=== PATIENT | female | born 1990 | race African-American/Black ===

== ENCOUNTER 2017-03-04 13:09 | Emergency (ER) | payer SELFPAY ==
[2017-03-04] MEDS ORDERED: IPRATROPIUM/ALBUTEROL 0.5-2.5 MG/3 ML AMPUL NEB ONE (14:46)
[2017-03-04] MEDS ORDERED: BUTALB/ACETAMINOPHEN/CAFFEINE 1 TAB EACH PO ONE (14:55)
[2017-03-04] MEDS ORDERED: DEXAMETHASONE 4 MG TABLET PO ONE (14:55)
--- NOTE | 2017-03-04 14:57 | ER Document Report ---
HPI - HPI Patient complains to provider of: sore throat, cough Onset/Duration: Persistent Quality of pain: Achy Pain Level: 3 Context: Patient presents complaining of sore throat for the past 2 weeks with cough for the past 4 days. Patient states that when she coughs it causes her head to hurt. Patient states she has had headache off and on for the past 4 days. Patient states she was coughing so hard today that she did vomit after coughing. Patient denies any fever. Associated Symptoms: Nonproductive cough, Headache, Vomiting - After cough, Sore throat. denies: Fever Exacerbated by: Coughing Relieved by: Remaining still Similar symptoms previously: Yes Recently seen / treated by doctor: No - ROS ROS below otherwise negative: Yes Systems Reviewed and Negative: Yes All other systems reviewed and negative - CONSTITUTIONAL Constitutional: DENIES: Fever, Chills - EENT EENT: REPORTS: Sore Throat. DENIES: Ear Pain, Eye problems - NEURO Neurology: REPORTS: Headache - CARDIOVASCULAR Cardiovascular: DENIES: Chest pain - RESPIRATORY Respiratory: REPORTS: Coughing. DENIES: Trouble Breathing - GASTROINTESTINAL Gastrointestinal: REPORTS: Patient vomiting. DENIES: Abdominal Pain, Diarrhea - REPRODUCTIVE LMP: [id number] Reproductive: DENIES: : - MUSCULOSKELETAL Musculoskeletal: DENIES: Back Pain - DERM Skin Color: Normal Skin Problems: None Past Medical History - General Information source: Patient - Social History Smoking Status: Current Every Day Smoker Chew tobacco use (# tins/day): No Smoking Education Provided: Yes Frequency of alcohol use: Occasional Drug Abuse: None Lives with: Family Family History: Reviewed & Not Pertinent Patient has suicidal ideation: No Patient has homicidal ideation: No - Medical History Medical History: Negative Renal/ Medical History: Denies: Hx Peritoneal Dialysis Past Surgical History: Reports: Hx Section - Immunizations Hx Diphtheria, Pertussis, Tetanus Vaccination: Yes Vertical Provider Document - CONSTITUTIONAL Agree With Documented VS: Yes Exam Limitations: No Limitations General Appearance: WD/WN, No Apparent Distress - INFECTION CONTROL TRAVEL OUTSIDE OF THE [place] IN LAST 30 DAYS: No - HEENT HEENT: Atraumatic, Normocephalic, Pharyngeal Tenderness, Pharyngeal Erythema. negative: Pharyngeal Exudate - NECK Neck: Normal Inspection, Supple. negative: Lymphadenopathy-Left, Lymphadenopathy-Right Notes: No meningismus - RESPIRATORY Respiratory: No Respiratory Distress, Chest Non-Tender, Wheezing - Only with coughing O2 Sat by Pulse Oximetry: 100 - CARDIOVASCULAR Cardiovascular: Regular Rate, Regular Rhythm, No Murmur - BACK Back: Normal Inspection - MUSCULOSKELETAL/EXTREMETIES Musculoskeletal/Extremeties: KAMLESH CONTRERAS - NEURO Level of Consciousness: Awake, Alert, Appropriate Motor/Sensory: No Motor Deficit Notes: No focal neurologic deficit, cranial nerves II through XII intact - DERM Integumentary: Warm, Dry, No Rash Course - Vital Signs Vital signs: Temp Pulse Resp BP Pulse Ox 98.2 F 74 18 136/80 H 100 03/04/17 13:19 03/04/17 13:19 03/04/17 13:19 03/04/17 13:19 03/04/17 13:19 - Diagnostic Test Radiology reviewed: Reports reviewed Discharge - Discharge Clinical Impression: Sore throat, Bronchospasm Upper respiratory infection Qualifiers: URI type: unspecified URI Qualified Code(s): J06.9 - Acute upper respiratory infection, unspecified Condition: Stable Disposition: HOME, SELF-CARE Instructions: Acetaminophen, Sore Throat ([facility]), Upper Respiratory Illness ([facility]) Additional Instructions: Return immediately for any new or worsening symptoms Followup with your primary care provider, call tomorrow to make a followup appointment Stop smoking Prescriptions: Albuterol Sulfate [Ventolin Hfa] 2 puff IH Q4HP PRN #17 gm PRN Reason: Benzonatate [Tessalon Perle 100 mg Capsule] 100 mg PO Q8HP PRN #20 cap PRN Reason: Naproxen [Naprosyn 250 Nmg Tablet] 1 tab PO BID #14 tablet Forms: Smoking Cessation Education, Return to Work Referrals: [facility] [Provider Group] - Follow up tomorrow
--- NOTE | 2017-03-04 15:33 | RADIOLOGY REPORT (SQ) ---
EXAM DESCRIPTION: CHEST PA/LAT COMPLETED DATE/TIME: 03/04/2017 3:22 pm REASON FOR STUDY: cough COMPARISON: None. EXAM PARAMETERS: NUMBER OF VIEWS: two views TECHNIQUE: Digital Frontal and Lateral radiographic views of the chest acquired. RADIATION DOSE: NA LIMITATIONS: none FINDINGS: LUNGS AND PLEURA: No opacities, masses or pneumothorax. No pleural effusion. MEDIASTINUM AND HILAR STRUCTURES: No masses or contour abnormalities. HEART AND VASCULAR STRUCTURES: Heart normal size. No evidence for failure. BONES: No acute findings. HARDWARE: None in the chest. OTHER: No other significant finding. IMPRESSION: NO SIGNIFICANT RADIOGRAPHIC FINDING IN THE CHEST. TECHNICAL DOCUMENTATION: JOB ID: [id number] [employer]- All Rights Reserved
[2017-03-04 16:41] VITALS: BP 134/82
== END 2017-03-04 16:41 | disposition home or self-care (01) ==
LOC: ER 13:09
DX: J02.9 Acute pharyngitis, unspecified (principal); J98.01 Acute bronchospasm; R51 Headache; R05 Cough; R11.10 Vomiting, unspecified; F17.200 Nicotine dependence, unspecified, uncomplicated; Z71.6 Tobacco abuse counseling
CPT/HCPCS: 94640; 99283; 87070; 87880; 87077; 71020; J3490; J7620

== ENCOUNTER 2017-04-01 15:13 | Emergency (ER) | payer SELFPAY ==
[2017-04-01] MEDS ORDERED: HYDROCODONE/ACETAMINOPHEN 5-325 MG TABLET PO ONE (16:31)
--- NOTE | 2017-04-01 16:52 | RADIOLOGY REPORT (SQ) ---
EXAM DESCRIPTION: CHEST PA/LAT COMPLETED DATE/TIME: 04/01/2017 4:43 pm REASON FOR STUDY: cp COMPARISON: 03/04/2017 EXAM PARAMETERS: NUMBER OF VIEWS: two views TECHNIQUE: Digital Frontal and Lateral radiographic views of the chest acquired. RADIATION DOSE: NA LIMITATIONS: none FINDINGS: LUNGS AND PLEURA: No opacities, masses or pneumothorax. No pleural effusion. MEDIASTINUM AND HILAR STRUCTURES: No masses or contour abnormalities. HEART AND VASCULAR STRUCTURES: Heart normal size. No evidence for failure. BONES: No acute findings. HARDWARE: None in the chest. OTHER: No other significant finding. IMPRESSION: NO SIGNIFICANT RADIOGRAPHIC FINDING IN THE CHEST. TECHNICAL DOCUMENTATION: JOB ID: [id number] [email or web address] ([employer])- All Rights Reserved
[2017-04-01 17:06] LABS: ABSOLUTE BASOPHILS # (AUTO) 0.1 10^3/uL (0.0-0.2); ABSOLUTE EOSINOPHILS # (AUTO) 0.1 10^3/uL (0.0-0.6); ABSOLUTE LYMPHOCYTES (AUTO) 1.9 10^3/uL (0.5-4.7); ABSOLUTE MONOCYTES (AUTO) 0.4 10^3/uL (0.1-1.4); ABSOLUTE NEUT (AUTO) 2.7 10^3/uL (1.7-8.2); EOSINOPHILS % (AUTO) 1.9 % (0-6); HEMATOCRIT 35.1 % (36.0-47.0); HEMOGLOBIN 11.6 g/dL (12.0-15.5); LYMPHOCYTES % (AUTO) 37.2 % (13-45); MEAN CORPUSCULAR HGB CONC 32.9 g/dL (32.0-36.0); MEAN CORPUSCULAR VOLUME 82 fl (80-97); PLATELET COUNT 167 10^3/uL (150-450); RED BLOOD COUNT 4.28 10^6/uL (3.72-5.28); RED CELL DISTRIBUTION WIDTH 18.6 % (11.5-14.0); SEGMENTED NEUTROPHILS % (AUTO) 52.9 % (42-78); TOTAL CELLS COUNTED % (AUTO) 100 %
[2017-04-01 17:22] LABS: ALANINE AMINOTRANSFERASE 27 U/L (9-52); ALBUMIN 4.2 g/dL (3.5-5.0); ALKALINE PHOSPHATASE 87 U/L (38-126); ANION GAP 10 (5-19); ASPARTATE AMINO TRANSFERASE 19 U/L (14-36); BILIRUBIN,DIRECT 0.2 mg/dL (0.0-0.4); BILIRUBIN,TOTAL 0.3 mg/dL (0.2-1.3); BLOOD UREA NITROGEN 8 mg/dL (7-20); CALCIUM 9.8 mg/dL (8.4-10.2); CARBON DIOXIDE 27 mmol/L (22-30); CHLORIDE 105 mmol/L (98-107); GLUCOSE 91 mg/dL (75-110); SODIUM 141.6 mmol/L (137-145)
[2017-04-01 17:40] LABS: APPEARANCE,URINE CLEAR; BILIRUBIN,URINE NEGATIVE (NEGATIVE); COLOR,URINE YELLOW; GLUCOSE, URINE NEGATIVE (NEGATIVE); KETONES,URINE NEGATIVE (NEGATIVE); LEUKOCYTE ESTERASE,URINE TRACE (NEGATIVE); NITRITE,URINE NEGATIVE (NEGATIVE); PROTEIN,URINE NEGATIVE (NEGATIVE); URINE SPECIFIC GRAVITY 1.016
--- NOTE | 2017-04-01 18:24 | ER Document Report ---
ED Cardiac - General Chief Complaint: Chest Pain Stated Complaint: CHEST PAIN Time Seen by Provider: 04/01/17 16:30 Mode of Arrival: Ambulatory Information source: Patient Notes: Patient presents stating she has had chest pain since this morning. It did get better after aspirin and nitroglycerin by ambulance. She states nothing otherwise made the pain better or worse. The pain was in the center of her chest. She felt somewhat short of breath with it. Patient denies any chronic cough cold or congestion. No previous history of cardiac disease or DVTs. She has had no recent long plane rides or car trips. No recent surgeries. She does not take any type of hormone therapy. The pain did not radiate. It was a sharp sensation. It was intermittent. No rashes. TRAVEL OUTSIDE OF THE [place] IN LAST 30 DAYS: No - Related Data Allergies/Adverse Reactions: No Known Allergies Allergy (Verified 04/01/17 15:17) Past Medical History - General Information source: Patient - Social History Smoking Status: Current Every Day Smoker Chew tobacco use (# tins/day): No Frequency of alcohol use: Occasional Drug Abuse: None Family History: Reviewed & Not Pertinent Patient has suicidal ideation: No Patient has homicidal ideation: No Renal/ Medical History: Denies: Hx Peritoneal Dialysis Past Surgical History: Reports: Hx Section - Immunizations Hx Diphtheria, Pertussis, Tetanus Vaccination: Yes Review of Systems - Review of Systems Constitutional: denies: Chills, Fever Cardiovascular: Chest pain. denies: Palpitations Respiratory: Short of breath. denies: Cough Gastrointestinal: denies: Diarrhea, Vomiting -: Yes All other systems reviewed and negative Physical Exam - Vital signs Vitals: Temp Pulse Resp BP Pulse Ox 98.8 F 72 18 132/75 H 100 04/01/17 15:41 04/01/17 15:41 04/01/17 15:41 04/01/17 15:41 04/01/17 15:41 Interpretation: Hypertensive - General General appearance: Appears well, Alert - HEENT Head: Normocephalic, Atraumatic Eyes: Normal Pupils: PERRL - Respiratory Respiratory status: No respiratory distress Chest status: Nontender Breath sounds: Normal Chest palpation: Normal - Cardiovascular Rhythm: Regular Heart sounds: Normal auscultation Murmur: No - Abdominal Inspection: Normal Distension: No distension Bowel sounds: Normal Tenderness: Nontender Organomegaly: No organomegaly - Back Back: Normal, Nontender - Extremities General upper extremity: Normal inspection, Nontender, Normal color, Normal ROM , Normal temperature General lower extremity: Normal inspection, Nontender, Normal color, Normal ROM , Normal temperature, Normal weight bearing. No: Dequan's sign - Neurological Neuro grossly intact: Yes Cognition: Normal Orientation: AAOx4 [place] Coma Scale Eye Opening: Spontaneous [place] Coma Scale Verbal: Oriented [place] Coma Scale Motor: Obeys Commands [place] Coma Scale Total: 15 Speech: Normal Motor strength normal: LUE, RUE, LLE, RLE Sensory: Normal - Psychological Associated symptoms: Normal affect, Normal mood - Skin Skin Temperature: Warm Skin Moisture: Dry Skin Color: Normal Course - Re-evaluation Re-evalutation: 04/01/17 18:22 Wells criteria 0 with neg d-dimer makes PE unlikely. HEART score is 2 but will rec close f/u with non specific EKG findings. - Vital Signs Vital signs: Temp Pulse Resp BP Pulse Ox 98.8 F 72 16 132/75 H 100 04/01/17 15:41 04/01/17 15:41 04/01/17 16:30 04/01/17 15:41 04/01/17 15:41 - Laboratory Result Diagrams: 04/01/17 16:54 04/01/17 16:54 Laboratory results interpreted by me: 04/01/17 04/01/17 16:54 17:00 Hgb 11.6 L Hct 35.1 L RDW 18.6 H Urine Urobilinogen 4.0 H Ur Leukocyte Esterase TRACE H - Diagnostic Test Radiology reviewed: Image reviewed, Reports reviewed - Chest x-ray shows no evidence of infiltrate or edema - EKG Interpretation by [facility] EKG shows normal: Sinus rhythm Rate: Normal Rhythm: NSR [place]/QRS: No: Right axis deviation, Left axis deviation Discharge - Discharge Clinical Impression: Chest pain in adult Condition: Stable Disposition: HOME, SELF-CARE Instructions: Chest Pain of Unclear Cause ([facility]) Additional Instructions: Your blood pressure is mildly elevated. Please have this rechecked within 1 week by your doctor. You have some nonspecific changes on your EKG. You should have a further heart evaluation by your primary care physician or a neurology specialist within 1 week. It is important that you discuss a possible cardiac stress test with him. Prescriptions: Tramadol HCl [Ultram] 50 mg PO Q6 PRN 3 Days #20 tablet PRN Reason: Forms: Return to Work, Elevated Blood Pressure Referrals: NICK MONTESINOS MD [ACTIVE STAFF] - Follow up in 1 week
--- NOTE | 2017-04-01 19:06 | EKG REPORT ---
SEVERITY:- BORDERLINE ECG - SINUS RHYTHM BORDERLINE T ABNORMALITIES, DIFFUSE LEADS : Confirmed by: Luke Bolanos 01-Apr-2017 19:05:55
[2017-04-01 19:08] VITALS: BP 136/85
== END 2017-04-01 19:09 | disposition home or self-care (01) ==
LOC: ER 15:13
DX: R07.9 Chest pain, unspecified (principal); F17.200 Nicotine dependence, unspecified, uncomplicated
CPT/HCPCS: 36415; 71046; 80053; 81001; 81025; 85025; 85379; 93005; 93010; 99285

== ENCOUNTER 2018-05-05 11:40 | Emergency (ER) | payer SELFPAY ==
[2018-05-05] MEDS ORDERED: METOCLOPRAMIDE HCL ORAL SOLN 10 MG/10 ML UDCUP PO ONE (12:26)
[2018-05-05] MEDS ORDERED: LIDOCAINE 2% VISCOUS SOLN 20 ML UDCUP PO ONE (12:26)
[2018-05-05] MEDS ORDERED: MAG HYDROX/AL HYDROX/SIMETH SUSP 30 ML UDCUP PO ONE (12:26)
--- NOTE | 2018-05-05 12:28 | ER Document Report ---
ED Medical Screen (RME) - General Chief Complaint: Chest Pain Stated Complaint: CHEST PAIN Time Seen by Provider: 05/05/18 12:21 Notes: Patient is a 27-year-old female that presents to the emergency department for chief complaint of chest pain. Patient reports that she is been having chest pain on and off for the past 2 months, she states in mid February, she woke up after night of drinking, with pain in her chest, is been off and on since then, she did quit drinking about a month ago to see if it would help but her symptoms continue, she had associated shortness of breath as well. Seems to be worse with smoking. ROS: Other than noted above, the 12 point review of systems was reviewed with the patient and were negative, all pertinent findings are included in the HPI. PHYSICAL EXAMINATION: Vital signs reviewed. GENERAL: Well-appearing, well-nourished and in no acute distress. HEAD: Atraumatic, normocephalic. EYES: Pupils equal round extraocular movements intact, conjunctiva are normal. ENT: Nares patent NECK: Normal range of motion CV: Heart regular rate and rhythm LUNGS: No respiratory distress Musculoskeletal: Normal range of motion NEUROLOGICAL: Normal speech PSYCH: Normal mood, normal affect. MDM: Patient seen and examined for rapid initial assessment. Vital signs reviewed. A comprehensive ED assessment and evaluation of the patient, analysis of test results and completion of the medical decision making process will be conducted by additional ED providers. *Note is created using voice recognition software and may contain spelling, syntax or grammatical errors. TRAVEL OUTSIDE OF THE [place] IN LAST 30 DAYS: No - Related Data Allergies/Adverse Reactions: No Known Allergies Allergy (Verified 05/05/18 11:42) Past Medical History - Social History Chew tobacco use (# tins/day): No Frequency of alcohol use: stopped in february Renal/ Medical History: Denies: Hx Peritoneal Dialysis Past Surgical History: Reports: Hx Section - Immunizations Hx Diphtheria, Pertussis, Tetanus Vaccination: Yes Physical Exam - Vital signs Vitals: Temp Pulse Resp BP Pulse Ox 99.7 F 100 18 136/88 H 99 05/05/18 11:45 05/05/18 11:45 05/05/18 11:45 05/05/18 11:45 05/05/18 11:45 Course - Vital Signs Vital signs: Temp Pulse Resp BP Pulse Ox 99.7 F 100 18 136/88 H 99 05/05/18 11:45 05/05/18 11:45 05/05/18 11:45 05/05/18 11:45 05/05/18 11:45
[2018-05-05 12:58] LABS: ABSOLUTE EOSINOPHILS # (AUTO) 0.1 10^3/uL (0.0-0.6); ABSOLUTE MONOCYTES (AUTO) 0.3 10^3/uL (0.1-1.4); ABSOLUTE NEUT (AUTO) 2.4 10^3/uL (1.7-8.2); BASOPHILS % (AUTO) 0.9 % (0-2); EOSINOPHILS % (AUTO) 1.8 % (0-6); HEMATOCRIT 36.9 % (36.0-47.0); HEMOGLOBIN 12.7 g/dL (12.0-15.5); LYMPHOCYTES % (AUTO) 41.3 % (13-45); MEAN CORPUSCULAR HEMOGLOBIN 28.9 pg (27.0-33.4); MEAN CORPUSCULAR HGB CONC 34.4 g/dL (32.0-36.0); MEAN CORPUSCULAR VOLUME 84 fl (80-97); MONOCYTES % (AUTO) 6.7 % (3-13); PLATELET COUNT 178 10^3/uL (150-450); RED BLOOD COUNT 4.39 10^6/uL (3.72-5.28); RED CELL DISTRIBUTION WIDTH 17.4 % (11.5-14.0); SEGMENTED NEUTROPHILS % (AUTO) 49.3 % (42-78); TOTAL CELLS COUNTED % (AUTO) 100 %; WHITE BLOOD COUNT 4.9 10^3/uL (4.0-10.5)
[2018-05-05 13:10] LABS: ALANINE AMINOTRANSFERASE 28 U/L (9-52); ALBUMIN 4.6 g/dL (3.5-5.0); ALKALINE PHOSPHATASE 77 U/L (38-126); ANION GAP 11 (5-19); ASPARTATE AMINO TRANSFERASE 20 U/L (14-36); BILIRUBIN,DIRECT 0.1 mg/dL (0.0-0.4); BILIRUBIN,TOTAL 0.2 mg/dL (0.2-1.3); BLOOD UREA NITROGEN 8 mg/dL (7-20); CALCIUM 9.5 mg/dL (8.4-10.2); CARBON DIOXIDE 25 mmol/L (22-30); CHLORIDE 107 mmol/L (98-107); GLUCOSE 85 mg/dL (75-110); POTASSIUM 4.2 mmol/L (3.6-5.0); SODIUM 142.9 mmol/L (137-145); TOTAL PROTEIN 7.6 g/dL (6.3-8.2)
[2018-05-05] MEDS ORDERED: KETOROLAC TROMETHAMINE INJ/PF 30 MG/1 ML SDV IV ONE (13:10)
--- NOTE | 2018-05-05 13:37 | RADIOLOGY REPORT (SQ) ---
EXAM DESCRIPTION: CHEST 2 VIEWS COMPLETED DATE/TIME: 05/05/2018 1:03 pm REASON FOR STUDY: chest pain COMPARISON: 04/01/2017 EXAM PARAMETERS: NUMBER OF VIEWS: two views TECHNIQUE: Digital Frontal and Lateral radiographic views of the chest acquired. RADIATION DOSE: NA LIMITATIONS: none FINDINGS: LUNGS AND PLEURA: No opacities, masses or pneumothorax. No pleural effusion. MEDIASTINUM AND HILAR STRUCTURES: No masses or contour abnormalities. HEART AND VASCULAR STRUCTURES: Heart normal size. No evidence for failure. BONES: No acute findings. HARDWARE: None in the chest. OTHER: No other significant finding. IMPRESSION: NO ACUTE RADIOGRAPHIC FINDING IN THE CHEST. TECHNICAL DOCUMENTATION: JOB ID: [id number] [employer]- All Rights Reserved Reading location - IP/workstation name: [email or web address]
[2018-05-05 14:47] VITALS: BP 126/78
--- NOTE | 2018-05-05 21:13 | EKG REPORT ---
SEVERITY:- NORMAL ECG - SINUS RHYTHM : Confirmed by: Luke Bolanos 05-May-2018 21:12:51
--- NOTE | 2018-05-07 09:13 | ER Document Report ---
Entered by DUNCAN BENNETT SCRIBE 05/05/18 [id number] Acting as scribe for:MEGAN STEELE MD ED General - General Chief Complaint: Chest Pain Stated Complaint: CHEST PAIN Time Seen by Provider: 05/05/18 12:21 Mode of Arrival: Ambulatory Information source: Patient Notes: 27-year-old female who presents to the emergency department today with complaints of chest pain for the last 2 months. Patient states the pain seems to be in her upper chest. Patient mentions that she used to "drink heavily" and has noticed the chest pain since she quit drinking in February. Patient states her pain occurs every day intermittently. Patient states she is sometimes awoken with this pain but usually always feels this pain immediately after waking up. Patient received a GI cocktail in triage which she says did nothing for her symptoms. Patient denies a family history of coronary artery disease. TRAVEL OUTSIDE OF THE [place] IN LAST 30 DAYS: No - Related Data Allergies/Adverse Reactions: No Known Allergies Allergy (Verified 05/05/18 11:42) Past Medical History - General Information source: Patient - Social History Smoking Status: Current Every Day Smoker Cigarette use (# per day): Yes Chew tobacco use (# tins/day): No Frequency of alcohol use: stopped in february Drug Abuse: None Lives with: Family Family History: Reviewed & Not Pertinent Patient has suicidal ideation: No Patient has homicidal ideation: No Past Surgical History: Reports: Hx Section - Immunizations Hx Diphtheria, Pertussis, Tetanus Vaccination: Yes Review of Systems - Review of Systems Constitutional: No symptoms reported EENT: No symptoms reported Cardiovascular: See HPI, Chest pain Respiratory: No symptoms reported Gastrointestinal: No symptoms reported Genitourinary: No symptoms reported Female Genitourinary: No symptoms reported Musculoskeletal: No symptoms reported Skin: No symptoms reported Hematologic/Lymphatic: No symptoms reported Neurological/Psychological: No symptoms reported -: Yes All other systems reviewed and negative Physical Exam - Vital signs Vitals: Temp Pulse Resp BP Pulse Ox 99.7 F 100 18 136/88 H 99 05/05/18 11:45 05/05/18 11:45 05/05/18 11:45 05/05/18 11:45 05/05/18 11:45 - Notes Notes: Physical Exam: General: Alert, appears well. HEENT: Normocephalic. Atraumatic. PERRL. Extraocular movements intact. Oropharynx clear. Neck: Supple. Non-tender. Respiratory: No respiratory distress. Rhonchi with forced cough. Left-sided chest wall, right-sided chest wall, and sternal tenderness with palpation. Cardiovascular: Regular rate and rhythm. Abdominal: Normal Inspection. Non-tender. No epigastric tenderness with palpation. No distension. Normal Bowel Sounds. Back: Non-tender. No deformity or step off. Extremities: Moves all four extremities. Upper extremities: Normal inspection. Normal ROM. Lower extremities: Normal inspection. No edema. Normal ROM. Neurological: Normal cognition. AAOx4. Normal speech. Psychological: Normal affect. Normal Mood. Skin: Warm. Dry. Normal color. Course - Re-evaluation Re-evalutation: 05/05/18 14:23 Patient symptoms have been off and on for almost 2 months. They are reproducible with movement and deep breath. Today the pain is reproducible with palpation. Cardiac enzymes were undetectable. EKG is completely normal. The patient is not on any hormone therapy for control. She reports that GI cocktail did not make any difference at all. The IV Toradol did make her pain feel better. - Vital Signs Vital signs: Temp Pulse Resp BP Pulse Ox 99.7 F 100 18 136/88 H 99 05/05/18 11:45 05/05/18 11:45 05/05/18 11:45 05/05/18 11:45 05/05/18 11:45 - Laboratory Result Diagrams: 05/05/18 12:40 05/05/18 12:40 Laboratory results interpreted by me: 05/05/18 05/05/18 12:40 13:35 RDW 17.4 H D-Dimer 0.51 H - Diagnostic Test Radiology reviewed: Image reviewed, Reports reviewed - Chest x-ray is unremarkable. - EKG Interpretation by [facility] EKG shows normal: Sinus rhythm, [place], Intervals, QRS Complexes, ST-T Waves Rate: Normal - 79 Rhythm: NSR Discharge - Discharge Clinical Impression: Chest wall pain Condition: Stable Disposition: HOME, SELF-CARE Additional Instructions: Chest Wall Pain Your chest pain has been diagnosed as coming from the chest wall. This is often caused by straining the muscles or joints in the chest during physical activity, direct trauma, coughing, or vigorous vomiting. Persons with arthritis are especially prone to this type of pain, due to inflammation of the cartilage joints near the breast bone. Occasionally, no cause can be found. Rest from strenuous physical activity. This kind of chest pain is usually made worse by movement of the chest. Depending on the symptoms, we may prescribe medicine for pain, muscle relaxation, and antiinflammatory effects. If the pain is new, and seems to be due to muscle strain, cold packs can help. Otherwise, apply gentle warmth to the painful area for 15 minutes every hour or two. You should contact the doctor immediately if things change. Further evaluation is needed if you develop a fever or cough, if the nature of the pain changes, or if you become short of breath. Take ibuprofen 800 mg every 8 hours for the next several days to reduce your chest wall tenderness. Limit activity that tends to make your chest hurt more. Follow-up with your primary care provider next week if not improving. RETURN TO THE EMERGENCY ROOM IF ANY NEW OR WORSENING SYMPTOMS. Scribe Attestation: 05/05/18 13:54 I personally performed the services described in the documentation, reviewed and edited the documentation which was dictated to the scribe in my presence, and it accurately records my words and actions. I personally performed the services described in the documentation, reviewed and edited the documentation which was dictated to the scribe in my presence, and it accurately records my words and actions.
== END 2018-05-05 14:30 | disposition home or self-care (01) ==
LOC: ER 11:40
DX: R07.89 Other chest pain (principal); F17.210 Nicotine dependence, cigarettes, uncomplicated
CPT/HCPCS: 93005; 99285; 36415; 83690; 84703; 85025; 80053; 84484; 85379; 71046; 93010; J3490; J1885

== ENCOUNTER 2018-06-05 02:47 | Observation (INO) | payer SELFPAY ==
[2018-06-05] MEDS ORDERED: DILTIAZEM HCL/D5W 125 MG/125 ML RTUINJ IV PRN (02:57)
--- NOTE | 2018-06-05 03:02 | ER Document Report ---
ED General - General Stated Complaint: CHEST PAIN Time Seen by Provider: 06/05/18 02:51 Notes: Patient is a pleasant 28-year-old female presents with complaint of rapid heartbeat and some chest tightness. Patient says that she has had this symptoms a few times before. She is been seen twice in the ER due to chest pain. She said both times she had very rapid heartbeat but by the time she got the chest pain the rapid heartbeat resolved. She continued chest pain at those times. Workups were negative and she was discharged home. But this times occurred after drinking large amounts of alcohol. Patient states she quit drinking for about a month but then drink alcohol tonight and the symptoms returned. She says she felt like her heart was racing had some tightness and sharp pain in her chest. Paramedics arrived and she was in A. fib with a heart rate in the 180s. They gave her 20 mg of Cardizem which slowed her heart rate down. She denies being on medications. She has no chronic medical problems. She says she is otherwise healthy. Patient adamantly denies any history of cocaine use. TRAVEL OUTSIDE OF THE [place] IN LAST 30 DAYS: No - Related Data Allergies/Adverse Reactions: No Known Allergies Allergy (Verified 05/05/18 11:42) Past Medical History - Social History Smoking Status: Current Every Day Smoker Frequency of alcohol use: Occasional Drug Abuse: None Family History: Reviewed & Not Pertinent Renal/ Medical History: Denies: Hx Peritoneal Dialysis Past Surgical History: Reports: Hx Section - Immunizations Hx Diphtheria, Pertussis, Tetanus Vaccination: Yes Review of Systems - Review of Systems Notes: My Normal Review Basic REVIEW OF SYSTEMS: CONSTITUTIONAL : Denies fever, chills, or sweats. Denies recent illness. EENT: Denies eye, ear, throat, or mouth pain or symptoms. Denies nasal or sinus congestion. CARDIOVASCULAR: Chest pain. mild rapid heartbeat RESPIRATORY: Denies cough, cold, or chest congestion. Denies shortness of breath, difficulty breathing, or wheezing. GASTROINTESTINAL: Denies abdominal pain. Denies nausea, vomiting, or diarrhea. MUSCULOSKELETAL: Denies neck or back pain or joint pain or swelling. SKIN: Denies rash or skin lesions. HEMATOLOGIC : Denies easy bruising or bleeding. NEUROLOGICAL: Denies altered mental status or loss of consciousness. Denies headache. Denies weakness or paralysis or loss of use of either side. Denies problems with gait or speech. Denies sensory or motor loss. ALL OTHER SYSTEMS REVIEWED AND NEGATIVE. Physical Exam - Vital signs Vitals: Resp Pulse Ox 17 100 06/05/18 03:03 06/05/18 03:03 - Notes Notes: General Appearance: Well nourished, alert, cooperative, no acute distress, no obvious discomfort. Well-appearing. Vitals: reviewed, See vital signs table. Head: no swelling or tenderness to the head Eyes: PERRL, EOMI, Conjuctiva clear Mouth: No decreasd moisture Throat: No tonsillar inflammation, No airway obstruction, No lymphadenopathy Neck: Supple, no neck tenderness, No thyromegaly Lungs: No wheezing, No rales, No rhonci, No accessory muscle use, good air exchange bilaterally. Heart: Rapid rate, Irregular rythm, No murmur, no rub Abdomen: Normal BS, soft, No rigidity, No abdominal tenderness, No guarding, no rebound, no abdominal masses, no organomegaly Extremities: strength 5/5 in all extremities, good pulses in all extremities, no swelling or tenderness in the extremities, no edema. Skin: warm, dry, appropriate color, no rash Neuro: speech clear, oriented x 3, normal affect, responds appropriately to questions. Course - Re-evaluation Re-evalutation: 06/05/18 04:30 Patient's heart rate is starting to get fast again. I have increased the Cardizem drip to 10 mg. I will give her a dose of Lopressor. I did ask her again before ordering the Lopressor if she has any history of cocaine use and she adamantly denies any history of cocaine use. She otherwise says she feels well and has no further concerns at this time. 06/05/18 04:57 Just before giving patient Lopressor she appeared to convert on the monitor. Lopressor was therefore not given. EKG affirms that the patient is now on sinus rhythm. 06/05/18 05:07 Patient's has had some small runs of A. fib then converted back to normal sinus. She is now been in normal sinus for approximately 15 minutes. Turned off the Cardizem drip. Patient's chads 2 score is 0. Her chads 2 vascular score is 1 and therefore antiplatelet is recommended anticoagulation. I have given a dose of aspirin. The patient's obvious is been having recurrent atrial fibrillation now for just over a month based on her symptoms at home by his suspect of admission is appropriate. I did speak with the patient and she is agreeable to admission. I did speak with the hospitalist, Dr. Dean, who says that he will have to pass admission off to the daytime team for further consideration for admission. Dictation of this chart was performed using voice recognition software; therefore, there may be some unintended grammatical errors. - Vital Signs Vital signs: Temp Pulse Resp BP Pulse Ox 99.1 F 131 H 17 131/81 H 98 06/05/18 03:24 06/05/18 03:24 06/05/18 04:51 06/05/18 04:51 06/05/18 04:51 - Laboratory Result Diagrams: 06/05/18 03:15 06/05/18 03:15 Laboratory results interpreted by me: 06/05/18 06/05/18 03:15 03:15 Hct 35.4 L RDW 18.1 H Carbon Dioxide 21 L Glucose 111 H - EKG Interpretation by Me Additional EKG results interpreted by me: 06/05/18 02:58 EKGs reviewed and interpreted by me. EKG shows A. fib with a rate of around [address] segment elevation or depression. QRS duration and QT intervals are within normal range. Old EKG for comparison is from May 05, 2018. Discharge - Discharge Clinical Impression: Atrial fibrillation Qualifiers: Atrial fibrillation type: paroxysmal Qualified Code(s): I48.0 - Paroxysmal atrial fibrillation Condition: Stable Disposition: ADMITTED OBSERVATION Admitting Provider: Hospitalist Unit Admitted: Telemetry
[2018-06-05 03:30] LABS: ABSOLUTE EOSINOPHILS # (AUTO) 0.1 10^3/uL (0.0-0.6); ABSOLUTE LYMPHOCYTES (AUTO) 2.1 10^3/uL (0.5-4.7); ABSOLUTE MONOCYTES (AUTO) 0.5 10^3/uL (0.1-1.4); ABSOLUTE NEUT (AUTO) 5.1 10^3/uL (1.7-8.2); BASOPHILS % (AUTO) 0.5 % (0-2); EOSINOPHILS % (AUTO) 1.4 % (0-6); HEMATOCRIT 35.4 % (36.0-47.0); HEMOGLOBIN 12.3 g/dL (12.0-15.5); LYMPHOCYTES % (AUTO) 26.6 % (13-45); MEAN CORPUSCULAR HEMOGLOBIN 28.9 pg (27.0-33.4); MEAN CORPUSCULAR HGB CONC 34.7 g/dL (32.0-36.0); MEAN CORPUSCULAR VOLUME 83 fl (80-97); MONOCYTES % (AUTO) 5.9 % (3-13); PLATELET COUNT 206 10^3/uL (150-450); RED BLOOD COUNT 4.25 10^6/uL (3.72-5.28); RED CELL DISTRIBUTION WIDTH 18.1 % (11.5-14.0); SEGMENTED NEUTROPHILS % (AUTO) 65.6 % (42-78); TOTAL CELLS COUNTED % (AUTO) 100 %; WHITE BLOOD COUNT 7.8 10^3/uL (4.0-10.5)
[2018-06-05 03:50] LABS: ALANINE AMINOTRANSFERASE 13 U/L (9-52); ALBUMIN 4.6 g/dL (3.5-5.0); ALCOHOL 92 mg/dL (NONE DETECTED); ALKALINE PHOSPHATASE 72 U/L (38-126); ANION GAP 13 (5-19); ASPARTATE AMINO TRANSFERASE 20 U/L (14-36); BILIRUBIN,DIRECT 0.2 mg/dL (0.0-0.4); BILIRUBIN,TOTAL 0.2 mg/dL (0.2-1.3); BLOOD UREA NITROGEN 10 mg/dL (7-20); CALCIUM 9.8 mg/dL (8.4-10.2); CARBON DIOXIDE 21 mmol/L (22-30); CHLORIDE 107 mmol/L (98-107); GLUCOSE 111 mg/dL (75-110); POTASSIUM 4.1 mmol/L (3.6-5.0); SODIUM 141.1 mmol/L (137-145); TOTAL PROTEIN 7.5 g/dL (6.3-8.2)
[2018-06-05 03:59] LABS: URINE AMPHETAMINES SCREEN NEGATIVE; URINE BARBITURATES SCREEN NEGATIVE; URINE BENZODIAZEPINES SCREEN NEGATIVE; URINE COCAINE SCREEN NEGATIVE; URINE MARIJUANA (THC) SCREEN NEGATIVE; URINE METHADONE SCREEN NEGATIVE; URINE PHENCYCLIDINE SCREEN NEGATIVE
[2018-06-05 04:19] LABS: FREE T3 4.47 pg/mL (2.77-5.27); FREE T4 (FREE THYROXINE) 1.23 ng/dL (0.78-2.19)
--- NOTE | 2018-06-05 04:25 | RADIOLOGY REPORT (SQ) ---
EXAM DESCRIPTION: XR CHEST 1 VIEW COMPLETED DATE/TME: 06/05/2018 03:27 CLINICAL HISTORY: 28 years, Female, atrial fib COMPARISON: 04/01/2017 chest NUMBER OF VIEWS: 1 TECHNIQUE: Portable chest LIMITATIONS: None. FINDINGS: Heart size is normal. Mild elevation right hemidiaphragm. Lungs are clear. No pneumothorax IMPRESSION: No acute cardiopulmonary process copyright 2010 [employer]- All Rights Reserved
[2018-06-05] MEDS ORDERED: METOPROLOL TARTRATE PF/INJ 5 MG/5 ML SDV IV ONE (04:28)
[2018-06-05 04:32] LABS: THYROID STIMULATING HORMONE 2.34 uIU/mL (0.47-4.68)
[2018-06-05] MEDS ORDERED: ENOXAPARIN SODIUM INJ 120 MG/0.8 ML DISP.SYRIN SUBCUT SCH ×2 (04:45→10:00)
[2018-06-05] MEDS ORDERED: ASPIRIN 325 MG TABLET PO ONE (05:02)
[2018-06-05] MEDS ORDERED: ONDANSETRON HCL INJ/PF 4 MG/2 ML SDV IV PRN (06:53)
[2018-06-05] MEDS ORDERED: MAGNESIUM HYDROXIDE SUSP 30 ML UDCUP PO PRN (06:53)
[2018-06-05] MEDS ORDERED: MAG HYDROX/AL HYDROX/SIMETH SUSP 30 ML UDCUP PO PRN (06:53)
--- NOTE | 2018-06-05 06:53 | PDOC H&P ---
History of Present Illness Admission Date/PCP: 06/05/2018 Patient complains of: Palpitations History of Present Illness: KERWIN CAI is a 28 year old female who presents the emergency room with acute palpitations. Patient admits that she began suddenly having a very rapid heartbeat and experiencing chest tightness accompanied by mild dyspnea. She had the sensation that her heart rate was somewhat irregular and was severely fast making her feel very uncomfortable. She admitted having several prior similar episodes which resolved spontaneously after a minute or 2. She has not identi fied any aggravating or ameliorating factors for her palpitations but admits that she was drinking at least 3 alcohol drinks earlier in the evening prior to the onset of the episode. This episode did not resolve, thus she called EMS and was found to have a heart rate of greater than 180 which was treated with a diltiazem bolus. By the time she arrived at the emergency room her heart rate was down to 140 and get his resolved to approximately 100 with a diltiazem drip. She will be admitted for further evaluation and treatment with initiation of oral therapy. Past Medical History Cardiac Medical History: Denies: Atrial Fibrillation, Coronary Artery Disease, DVT, Hyperlipidema, Hypertension, Pulmonary Embolism Pulmonary Medical History: Denies: Asthma, Chronic Obstructive Pulmonary Disease (COPD) EENT Medical History: Denies: Cataracts, Eyes - Corrective lenses Neurological Medical History: Denies: Hemorrhagic CVA, Ischemic CVA, Migraine, Multiple Sclerosis, Seizures Endocrine Medical History: Reports: Obesity Denies: Diabetes Mellitus Type 1, Diabetes Mellitus Type 2, Hyperthyroidism, Hypothyroidism Renal/ Medical History: Denies: Chronic Kidney Disease, Nephrolithiasis Malignancy Medical History: Reports: None GI Medical History: Denies: Cirrhosis, Hepatitis Musculoskeltal Medical History: Denies: Arthritis, Fibromyalgia, Gout Skin Medical History: Denies: Eczema, Psoriasis Psychiatric Medical History: Reports: Tobacco Dependency Denies: Alcohol Dependency, Substance Abuse Traumatic Medical History: Denies: None Hematology: Denies: Anemia, Bleeding Tendencies Infectious Medical History: Reports: None Past Surgical History Past Surgical History: Reports: Section Social History Information Source: Patient Lives with: Family Smoking Status: Current Every Day Smoker Frequency of Alcohol Use: Social Hx Recreational Drug Use: No Drugs: None Hx Prescription Drug Abuse: No - Advance Directive Resuscitation Status: Full Code Surrogate healthcare decision maker:: Her significant other Family History Family History: DM, Hypertension Parental Family History Reviewed: Yes Children Family History Reviewed: No Sibling(s) Family History Reviewed.: Yes Medication/Allergy Home Medications: Ciprofloxacin HCl [Cipro 500 mg Tablet] 500 mg PO BID #20 tablet 06/09/13 Phenazopyridine HCl [Pyridium 200 mg Tablet] 200 mg PO TID #15 tablet 06/09/13 Albuterol Sulfate [Ventolin Hfa] 2 puff IH Q4HP PRN #17 gm 03/04/17 Benzonatate [Tessalon Perle 100 mg Capsule] 100 mg PO Q8HP PRN #20 cap 03/04/17 Naproxen [Naprosyn 250 Nmg Tablet] 1 tab PO BID #14 tablet 03/04/17 Tramadol HCl [Ultram] 50 mg PO Q6 PRN 3 Days #20 tablet 04/01/17 Allergies/Adverse Reactions: No Known Allergies Allergy (Verified 05/05/18 11:42) Review of Systems Constitutional: PRESENT: as per HPI, fatigue. ABSENT: chills, fever(s) Eyes: ABSENT: visual disturbances, other - Ocular pain Ears: ABSENT: other - Ear pain Nose, Mouth, and Throat: ABSENT: mouth pain, sore throat Cardiovascular: PRESENT: as per HPI, chest pain - Tightness, palpitations. ABSENT: dyspnea on exertion, edema, orthropnea Respiratory: PRESENT: as per HPI, dyspnea. ABSENT: cough Gastrointestinal: ABSENT: abdominal pain, constipation, diarrhea, nausea, vo miting Genitourinary: ABSENT: dysuria, hematuria Musculoskeletal: ABSENT: deformity, joint swelling Integumentary: ABSENT: pruritus, rash Neurological: ABSENT: confusion, convulsions, focal weakness, memory loss Psychiatric: ABSENT: anxiety, depression Endocrine: ABSENT: cold intolerance, heat intolerance Hematologic/Lymphatic: ABSENT: easy bleeding, easy bruising Physical Exam Vital Signs: Temp Pulse Resp BP Pulse Ox 99.1 F 131 H 17 113/60 97 06/05/18 03:24 06/05/18 03:24 06/05/18 06:11 06/05/18 06:11 06/05/18 06:11 Intake & Output 06/03/18 06/04/18 06/05/18 23:59 23:59 23:59 Intake Total 12 Balance 12 Weight 112.4 kg General appearance: PRESENT: no acute distress, cooperative, morbidly obese Head exam: PRESENT: atraumatic, normocephalic Eye exam: PRESENT: conjunctiva pink, EOMI. ABSENT: scleral icterus Ear exam: PRESENT: normal external ear exam. ABSENT: bleeding, drainage Mouth exam: PRESENT: dry mucosa, neck supple Neck exam: ABSENT: thyromegaly, tracheal deviation Respiratory exam: PRESENT: clear to auscultation tra, symmetrical, unlabored Cardiovascular exam: PRESENT: RRR. ABSENT: clicks, gallop, rubs Pulses: PRESENT: normal radial pulses, normal dorsalis pedis pul Vascular exam: PRESENT: normal capillary refill. ABSENT: pallor GI/Abdominal exam: PRESENT: normal bowel sounds, soft Rectal exam: PRESENT: deferred Extremities exam: ABSENT: joint swelling, pedal edema Musculoskeletal exam: PRESENT: full ROM, normal inspection Neurological exam: PRESENT: alert, oriented to person, oriented to place, oriented to time, oriented to situation, CN II-XII grossly intact. ABSENT: motor sensory deficit Psychiatric exam: PRESENT: appropriate affect, normal mood Skin exam: PRESENT: dry, intact, warm. ABSENT: jaundice, rash, urticaria Results Laboratory Results: 06/05/18 03:15 06/05/18 03:15 06/05/18 06/05/18 06/05/18 03:15 03:15 03:15 WBC 7.8 RBC 4.25 Hgb 12.3 Hct 35.4 L MCV 83 MCH 28.9 MCHC 34.7 RDW 18.1 H Plt Count 206 Seg Neutrophils % 65.6 Lymphocytes % 26.6 Monocytes % 5.9 Eosinophils % 1.4 Basophils % 0.5 Absolute Neutrophils 5.1 Absolute Lymphocytes 2.1 Absolute Monocytes 0.5 Absolute Eosinophils 0.1 Absolute Basophils 0.0 Sodium 141.1 Potassium 4.1 Chloride 107 Carbon Dioxide 21 L Anion Gap 13 BUN 10 Creatinine 0.70 Est GFR ( Amer) > 60 Est GFR (Non-Af Amer) > 60 Glucose 111 H Calcium 9.8 Magnesium 1.9 Total Bilirubin 0.2 AST 20 ALT 13 Alkaline Phosphatase 72 Total Protein 7.5 Albumin 4.6 TSH 2.34 Free T4 1.23 Free T3 pg/mL 4.47 Serum HCG, Qual 06/05/18 03:15 WBC RBC Hgb Hct MCV MCH MCHC RDW Plt Count Seg Neutrophils % Lymphocytes % Monocytes % Eosinophils % Basophils % Absolute Neutrophils Absolute Lymphocytes Absolute Monocytes Absolute Eosinophils Absolute Basophils Sodium Potassium Chloride Carbon Dioxide Anion Gap BUN Creatinine Est GFR ( Amer) Est GFR (Non-Af Amer) Glucose Calcium Magnesium Total Bilirubin AST ALT Alkaline Phosphatase Total Protein Albumin TSH Free T4 Free T3 pg/mL Serum HCG, Qual NEGATIVE 06/05/18 03:15 Troponin I < 0.012 Impressions: Chest X-Ray 06/05/18 03:27 IMPRESSION: No acute cardiopulmonary process copyright 2010 [employer]- All Rights Reserved Assessment & Plan - Diagnosis (1) Paroxysmal atrial fibrillation with rapid ventricular response Is this a current diagnosis for this admission?: Yes Plan: Patient has been treated with IV Cardizem which be discontinued in favor oral therapy utilizing a atenolol and she can also be continued on low-dose aspirin therapy and her risk category for prevention of possible embolic stroke. Additional causes of acute atrial fibrillation will be investigated with laboratory testing. (2) Morbid obesity Is this a current diagnosis for this admission?: Yes Plan: Patient be advised by the full stack software developer as to lifestyle and diet changes to enhance her medical health as well as her entire well-being (3) Tobacco use disorder, moderate, dependence Is this a current diagnosis for this admission?: Yes Plan: Smoking cessation has been advised and counseled briefly. A nicotine patch will be available to the patient if she desires (4) Alcohol abuse Is this a current diagnosis for this admission?: Yes Plan: Patient has been advised that use of alcohol can result in more frequent and more severe episodes of her arrhythmia. Discontinuation of alcohol use is been advised. - Time Time Spent: 30 to 50 Minutes Critical Time spent with patient: Less than 15 minutes Smoking Cessation Education: 3 to 10 minutes Anticipated discharge: Home - Inpatient Certification Based on my medical assessment, after consideration of the patient's comorbidities, presenting symptoms, or acuity I expect that the services needed warrant INPATIENT care.: No I certify that my determination is in accordance with my understanding of Medicare's requirements for reasonable and necessary INPATIENT services [42 CFR 412.3e].: No Medical Necessity: Need Close Monitoring Due to Risk of Patient Decompensation, Need For Continuous Telemetry Monitoring, Risk of Complication if Not Cared For in Hospital
[2018-06-05] MEDS ORDERED: NICOTINE 21 MG/24 HR PATCH.TD24 TD PRN (06:59)
[2018-06-05] MEDS ORDERED: ACETAMINOPHEN 325 MG TABLET PO PRN (06:59)
[2018-06-05 09:03] LABS: HEMATOCRIT 34.2 % (36.0-47.0); HEMOGLOBIN 11.8 g/dL (12.0-15.5); MEAN CORPUSCULAR HEMOGLOBIN 28.6 pg (27.0-33.4); MEAN CORPUSCULAR HGB CONC 34.4 g/dL (32.0-36.0); MEAN CORPUSCULAR VOLUME 83 fl (80-97); PLATELET COUNT 192 10^3/uL (150-450); RED BLOOD COUNT 4.11 10^6/uL (3.72-5.28); WHITE BLOOD COUNT 6.1 10^3/uL (4.0-10.5)
[2018-06-05 09:19] LABS: ANION GAP 12 (5-19); BLOOD UREA NITROGEN 10 mg/dL (7-20); CARBON DIOXIDE 21 mmol/L (22-30); CHLORIDE 104 mmol/L (98-107); GLUCOSE 89 mg/dL (75-110); POTASSIUM 3.7 mmol/L (3.6-5.0); SODIUM 137.4 mmol/L (137-145)
[2018-06-05 09:20] LABS: TRIGLYCERIDES 93 mg/dL (<150)
[2018-06-05 09:31] LABS: CREATINE KINASE MB 0.42 ng/mL (<4.55); DIRECT LDL 85 mg/dL (<100)
[2018-06-05 09:36] LABS: TROPONIN I < 0.012 ng/mL
--- NOTE | 2018-06-05 12:34 | EKG REPORT ---
SEVERITY:- OTHERWISE NORMAL ECG - SINUS TACHYCARDIA : Confirmed by: Breanne Perkins MD 05-Jun-2018 12:34:22
--- NOTE | 2018-06-05 12:36 | EKG REPORT ---
SEVERITY:- ABNORMAL ECG - ATRIAL FIBRILLATION, V-RATE 82-169 BORDERLINE T ABNORMALITIES, INFERIOR LEADS : Confirmed by: Breanne Perkins MD 05-Jun-2018 12:34:30
[2018-06-05] MEDS: ASPIRIN 81 MG TABLET, ENT COATED PO SCH (13:44)
[2018-06-05] MEDS: ATENOLOL 50 MG TABLET PO SCH (13:44)
[2018-06-05] MEDS: FAMOTIDINE 20 MG TABLET PO SCH ×2 (13:44→21:05)
[2018-06-05] MEDS: DOCUSATE SODIUM 100 MG CAPSULE PO SCH ×2 (13:44→18:30)
[2018-06-05] MEDS: NALBUPHINE HCL INJ 10 MG/1 ML AMPULE IV PRN ×2 (13:44→21:06)
[2018-06-05] MEDS ORDERED: MORPHINE SULFATE 10 MG/ML INJ IV ONE (16:00)
[2018-06-05 16:13] LABS: CREATINE KINASE MB 0.38 ng/mL (<4.55)
[2018-06-05 16:20] LABS: TROPONIN I < 0.012 ng/mL
[2018-06-05 19:44] LABS: APPEARANCE,URINE SLIGHTLY-CLOUDY; BILIRUBIN,URINE NEGATIVE (NEGATIVE); COLOR,URINE YELLOW; GLUCOSE, URINE NEGATIVE (NEGATIVE); KETONES,URINE NEGATIVE (NEGATIVE); LEUKOCYTE ESTERASE,URINE NEGATIVE (NEGATIVE); NITRITE,URINE NEGATIVE (NEGATIVE); PROTEIN,URINE NEGATIVE (NEGATIVE); URINE SPECIFIC GRAVITY 1.021
[2018-06-05 21:39] LABS: CREATINE KINASE MB 0.33 ng/mL (<4.55)
[2018-06-05 21:41] LABS: TROPONIN I < 0.012 ng/mL
--- NOTE | 2018-06-05 22:17 | EKG REPORT ---
SEVERITY:- ABNORMAL ECG - SINUS RHYTHM NONSPECIFIC T ABNORMALITIES, ANTERIOR LEADS : Confirmed by: Breanne Perkins MD 05-Jun-2018 22:17:04
[2018-06-05] MEDS ORDERED: MORPHINE SULFATE 10 MG/ML INJ IV PRN ×2 (23:43)
[2018-06-06] MEDS: MORPHINE SULFATE 10 MG/ML INJ IV PRN ×3 (00:06→08:16)
[2018-06-06 08:52] VITALS: BP 122/63
[2018-06-06] MEDS: ATENOLOL 50 MG TABLET PO SCH (09:25)
[2018-06-06] MEDS: DOCUSATE SODIUM 100 MG CAPSULE PO SCH (09:25)
[2018-06-06] MEDS: FAMOTIDINE 20 MG TABLET PO SCH (09:25)
[2018-06-06] MEDS: ASPIRIN 81 MG TABLET, ENT COATED PO SCH (09:25)
--- NOTE | 2018-06-06 09:39 | PDOC DISCHARGE SUMMARY ---
General - Admit/Disc Date/PCP Admission Date/Primary Care Provider: 06/05/18 08:44 Discharge Date: 06/06/18 - Discharge Diagnosis (1) Paroxysmal atrial fibrillation with rapid ventricular response Is this a current diagnosis for this admission?: Yes Summary: New diagnosis this admission, however symptoms have been on-going for 2-3 months - Treated with beta-nicolle and achieved good rate control - [id number] score: 1 (low risk) - Work up: electrolytes and TSH wnl Outpatient management: - Script given for Metoprolol Succinate 50mg daily for rate control - Script given for ASA 81mg PO daily for CVA prevention - Lifestyle interventions discussed including cutting back on caffeine and alcohol use; decreasing stress level; stop smoking (2) Alcohol abuse Is this a current diagnosis for this admission?: Yes Summary: Discussed with patient importance of cutting back on EtOH use (3) Morbid obesity Is this a current diagnosis for this admission?: Yes Summary: Discussed lifestyle, diet, and exercise changes; per above (4) Tobacco use disorder, moderate, dependence Is this a current diagnosis for this admission?: Yes Summary: Per above -Script given for nicotene patches - Additional Information Resuscitation Status: Full Code Discharge Diet: Cardiac Discharge Activity: Activity As Tolerated Prescriptions: Aspirin [Ecotrin 81 mg EC Tablet] 81 mg PO DAILY #30 tabec Metoprolol Succinate [Toprol Xl] 50 mg PO DAILY #30 tab.er.24h Nicotine [Nicoderm 21 mg/24 Hr Transderm Patch] 1 each TD DAILYP PRN #30 patch.td24 PRN Reason: Home Medications: Aspirin [Ecotrin 81 mg EC Tablet] 81 mg PO DAILY #30 tabec 06/06/18 Metoprolol Succinate [Toprol Xl] 50 mg PO DAILY #30 tab.er.24h 06/06/18 Nicotine [Nicoderm 21 mg/24 Hr Transderm Patch] 1 each TD DAILYP PRN #30 patch.[id number] 06/06/18 History of Present Illness History of Present Illness: KERWIN CAI is a 28 year old female who presents the emergency room with acute palpitations. Patient admits that she began suddenly having a very rapid heartbeat and experiencing chest tightness accompanied by mild dyspnea. She had the sensation that her heart rate was somewhat irregular and was severely fast making her feel very uncomfortable. She admitted having several prior similar episodes which resolved spontaneously after a minute or 2. She has not identified any aggravating or ameliorating factors for her palpitations but admits that she was drinking at least 3 alcohol drinks earlier in the evening prior to the onset of the episode. This episode did not resolve, thus she called EMS and was found to have a heart rate of greater than 180 which was treated with a diltiazem bolus. By the time she arrived at the emergency room her heart rate was down to 140 and get his resolved to approximately 100 with a diltiazem drip. She will be admitted for further evaluation and treatment with initiation of oral therapy. Physical Exam Vital Signs: Temp Pulse Resp BP Pulse Ox 98.3 F 58 L 17 122/63 100 06/06/18 08:52 06/06/18 08:52 06/06/18 08:52 06/06/18 08:52 06/06/18 08:52 Intake & Output 06/05/18 06/06/18 06/07/18 05:59 06:59 06:59 Intake Total Output Total Balance Weight General appearance: PRESENT: no acute distress, cooperative, morbidly obese Head exam: PRESENT: atraumatic, normocephalic Mouth exam: PRESENT: moist Respiratory exam: PRESENT: unlabored. ABSENT: tachypnea Cardiovascular exam: PRESENT: +S1, +S2, other - Rate control. ABSENT: systolic murmur, tachycardia GI/Abdominal exam: PRESENT: soft. ABSENT: tenderness Extremities exam: ABSENT: +1 edema Neurological exam: PRESENT: alert, awake, CN II-XII grossly intact Psychiatric exam: PRESENT: appropriate affect, normal mood Skin exam: PRESENT: dry, intact Results Laboratory Results: 06/05/18 08:56 06/05/18 08:56 06/05/18 06/05/18 06/05/18 08:56 08:56 08:56 WBC 6.1 RBC 4.11 Hgb 11.8 L Hct 34.2 L MCV 83 MCH 28.6 MCHC 34.4 RDW 18.0 H Plt Count 192 Sodium 137.4 Potassium 3.7 Chloride 104 Carbon Dioxide 21 L Anion Gap 12 BUN 10 Creatinine 0.65 Est GFR ( Amer) > 60 Est GFR (Non-Af Amer) > 60 Glucose 89 Calcium 9.0 Magnesium 1.8 Triglycerides Cholesterol LDL Cholesterol Direct VLDL Cholesterol HDL Cholesterol TSH 3.49 Urine Color Urine Appearance Urine pH Ur Specific [place] Urine Protein Urine Glucose (UA) Urine Ketones Urine Blood Urine Nitrite Ur Leukocyte Esterase Urine WBC (Auto) Urine RBC (Auto) 06/05/18 06/05/18 08:56 19:15 WBC RBC Hgb Hct MCV MCH MCHC RDW Plt Count Sodium Potassium Chloride Carbon Dioxide Anion Gap BUN Creatinine Est GFR ( Amer) Est GFR (Non-Af Amer) Glucose Calcium Magnesium Triglycerides 93 Cholesterol 154.20 LDL Cholesterol Direct 85 VLDL Cholesterol 19.0 HDL Cholesterol 50 TSH Urine Color YELLOW Urine Appearance SLIGHTLY-CLOUDY Urine pH 7.0 Ur Specific [place] 1.021 Urine Protein NEGATIVE Urine Glucose (UA) NEGATIVE Urine Ketones NEGATIVE Urine Blood NEGATIVE Urine Nitrite NEGATIVE Ur Leukocyte Esterase NEGATIVE Urine WBC (Auto) 2 Urine RBC (Auto) 1 06/05/18 06/05/18 06/05/18 03:15 08:56 08:56 Creatine Kinase 197 H CK-MB (CK-2) 0.42 Troponin I < 0.012 < 0.012 06/05/18 06/05/18 06/05/18 15:07 15:07 21:06 Creatine Kinase 182 H 151 H CK-MB (CK-2) 0.38 Troponin I < 0.012 06/05/18 21:06 Creatine Kinase CK-MB (CK-2) 0.33 Troponin I < 0.012 Impressions: Chest X-Ray 06/05/18 03:27 IMPRESSION: No acute cardiopulmonary process copyright 2011 [employer]- All Rights Reserved Qualifiers - * PATIENT BEING DISCHARGED WITH ANY OF THE FOLLOWING DIAGNOSIS: No
== END 2018-06-06 10:29 | disposition home or self-care (01) ==
LOC: ER 02:47 → EH 08:44 → 4S 12:22
PROVIDERS: ADMIT Emergency Medicine; ATTEND Emergency Medicine
DX: I48.0 Paroxysmal atrial fibrillation (principal); F10.10 Alcohol abuse, uncomplicated; E66.01 Morbid (severe) obesity due to excess calories; F17.200 Nicotine dependence, unspecified, uncomplicated; R53.83 Other fatigue; Z79.899 Other long term (current) drug therapy; Z79.82 Long term (current) use of aspirin; Z82.49 Family history of ischemic heart disease and other diseases of the circulatory system
CPT/HCPCS: 36415; 71045; 80048; 80053; 80061; 80307; 81001; 82550; 82553; 83036; 83735; 84439; 84443; 84481; 84484; 84703; 85025; 85027; 85379; 93005; 93010; 96365; 96366; 99285; G0378; J2270; J2300; J2405; J3490

== ENCOUNTER 2018-11-28 04:32 | Emergency (ER) | payer SELFPAY ==
[2018-11-28] MEDS ORDERED: ASPIRIN 81 MG TABLET, CHEWABLE PO ONE (04:49)
[2018-11-28] MEDS ORDERED: IPRATROPIUM/ALBUTEROL 0.5-2.5 MG/3 ML AMPUL NEB ONE (04:53)
[2018-11-28 05:11] LABS: ABSOLUTE EOSINOPHILS # (AUTO) 0.1 10^3/uL (0.0-0.6); ABSOLUTE LYMPHOCYTES (AUTO) 2.3 10^3/uL (0.5-4.7); ABSOLUTE MONOCYTES (AUTO) 0.3 10^3/uL (0.1-1.4); ABSOLUTE NEUT (AUTO) 3.2 10^3/uL (1.7-8.2); BASOPHILS % (AUTO) 0.7 % (0-2); EOSINOPHILS % (AUTO) 1.9 % (0-6); HEMATOCRIT 35.3 % (36.0-47.0); HEMOGLOBIN 11.6 g/dL (12.0-15.5); LYMPHOCYTES % (AUTO) 38.1 % (13-45); MEAN CORPUSCULAR HEMOGLOBIN 27.9 pg (27.0-33.4); MEAN CORPUSCULAR HGB CONC 32.8 g/dL (32.0-36.0); MEAN CORPUSCULAR VOLUME 85 fl (80-97); MONOCYTES % (AUTO) 5.7 % (3-13); PLATELET COUNT 192 10^3/uL (150-450); RED BLOOD COUNT 4.15 10^6/uL (3.72-5.28); RED CELL DISTRIBUTION WIDTH 20.4 % (11.5-14.0); SEGMENTED NEUTROPHILS % (AUTO) 53.6 % (42-78); TOTAL CELLS COUNTED % (AUTO) 100 %
[2018-11-28 05:17] LABS: INTERNATIONAL RATION (INR) 1.01; PROTHROMBIN TIME 13.3 SEC (11.4-15.4)
[2018-11-28 05:18] LABS: ALBUMIN 4.5 g/dL (3.5-5.0); ALKALINE PHOSPHATASE 67 U/L (38-126); ANION GAP 10 (5-19); ASPARTATE AMINO TRANSFERASE 24 U/L (14-36); BILIRUBIN,DIRECT 0.2 mg/dL (0.0-0.4); BILIRUBIN,TOTAL 0.2 mg/dL (0.2-1.3); BLOOD UREA NITROGEN 13 mg/dL (7-20); CALCIUM 9.5 mg/dL (8.4-10.2); CARBON DIOXIDE 22 mmol/L (22-30); CHLORIDE 106 mmol/L (98-107); CREATINE KINASE 220 U/L (30-135); GLUCOSE 108 mg/dL (75-110); POTASSIUM 4.3 mmol/L (3.6-5.0); TOTAL PROTEIN 7.5 g/dL (6.3-8.2)
[2018-11-28 05:20] LABS: D-DIMER 0.57 ug/mL (0.00-0.50)
--- NOTE | 2018-11-28 05:21 | RADIOLOGY REPORT (SQ) ---
EXAM DESCRIPTION: XR CHEST 1 VIEW COMPLETED DATE/TME: 11/28/2018 04:50 CLINICAL HISTORY: 28 years Female, CP COMPARISON:Jun 05 2018, NUMBER OF VIEWS/TECHNIQUE: 1/AP FINDINGS: Adequate lung volume, clear parenchyma, normal cardiac silhouette, and intact bony thorax. IMPRESSION: No acute cardiopulmonary findings.
[2018-11-28 05:36] LABS: CREATINE KINASE MB 0.49 ng/mL (<4.55); TROPONIN I < 0.012 ng/mL
[2018-11-28] MEDS ORDERED: NORMAL SALINE 1000 ML 1,000 ML IV ONE (05:47)
[2018-11-28 06:23] VITALS: BP 131/71
--- NOTE | 2018-11-28 07:36 | ER Document Report ---
ED General - General Chief Complaint: Chest Pain Stated Complaint: CHEST PAIN Time Seen by Provider: 11/28/18 04:49 Primary Care Provider: [facility] [Provider Group] - Follow up as needed [facility] [Provider Group] - Follow up as needed Notes: Patient is a 28-year-old female presents to the emergency department with left- sided chest pain. Patient states proximately an hour ago she was awoken from sleep with sharp left-sided chest pain. Patient states that is intermittent in nature. Patient states on 06/05/2018 patient was admitted to the hospital for atrial fibrillation. States she was sent home with metoprolol and aspirin. Patient states she has been out of both of those medications for the last 4 months. Patient states she also never followed up with a records management director as suggested when she was discharged. Patient's denying any history of asthma but is a current smoking history. Patient states when the chest pain started she also felt short of breath. Patient's denying any diaphoresis. Patient denies abdominal pain, nausea, vomiting, dysuria. Patient states she takes no daily medications. Patient states she is currently on her menstrual cycle. TRAVEL OUTSIDE OF THE [place] IN LAST 30 DAYS: No - Related Data Allergies/Adverse Reactions: No Known Allergies Allergy (Verified 05/05/18 11:42) Home Medications: none Past Medical History - General Information source: Patient - Social History Smoking Status: Current Every Day Smoker Frequency of alcohol use: None Drug Abuse: None Family History: DM, Hypertension Patient has suicidal ideation: No Patient has homicidal ideation: No - Past Medical History Cardiac Medical History: Reports: Hx Atrial Fibrillation Denies: Hx Coronary Artery Disease, Hx DVT, Hx Hypercholesterolemia, Hx Hypertension, Hx Pulmonary Embolism Pulmonary Medical History: Denies: Hx Asthma, Hx COPD Neurological Medical History: Denies: Hx Migraine, Hx Seizures Endocrine Medical History: Denies: Hx Diabetes Mellitus Type 1, Hx Diabetes Mellitus Type 2, Hx Hyperthyroidism, Hx Hypothyroidism Renal/ Medical History: Denies: Hx Peritoneal Dialysis GI Medical History: Denies: Hx Cirrhosis, Hx Hepatitis Musculoskeletal Medical History: Denies Hx Arthritis, Denies Hx Fibromyalgia, Denies Hx Gout Skin Medical History: Denies Hx Eczema, Denies Hx Psoriasis Infectious Medical History: Denies: Hx Hepatitis Past Surgical History: Reports: Hx Section - Immunizations Hx Diphtheria, Pertussis, Tetanus Vaccination: Yes Review of Systems - Review of Systems Constitutional: denies: Fever EENT: No symptoms reported Cardiovascular: See HPI Respiratory: See HPI Gastrointestinal: No symptoms reported Genitourinary: No symptoms reported Female Genitourinary: No symptoms reported Musculoskeletal: No symptoms reported Skin: No symptoms reported Hematologic/Lymphatic: No symptoms reported Neurological/Psychological: No symptoms reported Physical Exam - Vital signs Vitals: Pulse Ox 100 11/28/18 04:38 - Notes Notes: GENERAL: Alert, interacts well. No acute distress. HEAD: Normocephalic, atraumatic. EYES: Pupils equal, round, and reactive to light. Extraocular movements intact. ENT: Oral mucosa moist, tongue midline. NECK: Full range of motion. Supple. Trachea midline. LUNGS: Slight end expiratory wheeze heard left base and right apices, no discernible rales, or rhonchi. No respiratory distress. HEART: Regular rate and rhythm. No murmur ABDOMEN: Soft, non-tender. Non-distended. Bowel sounds present in all 4 quadrants. EXTREMITIES: Moves all 4 extremities spontaneously. No edema, normal radial and dorsalis pedis pulses bilaterally. No cyanosis. BACK: no cervical, thoracic, lumbar midline tenderness. No saddle anesthesia, normal distal neurovascular exam. NEUROLOGICAL: Alert and oriented x3. Normal speech. cranial nerves II through XII grossly intact PSYCH: Normal affect, normal mood. SKIN: Warm, dry, normal turgor. No rashes or lesions noted. Course - Re-evaluation Re-evalutation: Patient is a 28-year-old female presents to the emergency department for left- sided chest pain. Patient does have a history of atrial fibrillation and is supposed to be on metoprolol and aspirin. Patient's EKG shows a sinus rhythm rate of 84, QTc 445, no ST segment elevations or depressions. Discussing this case with my attending Dr. Condon he is suggesting a d-dimer at this time. Based on patient's sharp left-sided nonreproducible chest pain and slight wheeze as patient has no history of asthma. D-dimer did come back elevated. Again discussed this case with Dr. Condon who states to proceed with CTA at this time. Chest X-Ray 11/28/18 04:50 IMPRESSION: No acute cardiopulmonary findings. CTA shows no signs of pulmonary embolus. Upon reevaluation of the patient she is sleeping comfortably, easily arousable with verbal stimuli. Patient voices that she no longer has the chest pain. Reexamination of patient's lungs reveal clear lung sounds in all chat[place]. Patient was treated with a DuoNeb treatment in the emergency department for her generalized wheeze. Discussed continued use of albuterol treatments as well as steroids. Discussed follow-up at [facility] and [facility] as she is uninsured. At this time will discharge with return precautions and follow-up recommendations. Verbal discharge instructions given a the bedside and oppo rtunity for questions given. Medication warnings reviewed. Patient is in agreement with this plan and has verbalized understanding of return precautions and the need for primary care follow-up in the next 24-72 hours. This medical record was dictated with voice recognizing software. There may be grammatical, syntax errors that are unintended. - Vital Signs Vital signs: Temp Pulse Resp BP Pulse Ox 98.4 F 20 131/71 H 100 11/28/18 04:49 11/28/18 07:00 11/28/18 06:01 11/28/18 07:00 - Laboratory Result Diagrams: 11/28/18 04:47 11/28/18 04:47 Laboratory results interpreted by me: 11/28/18 11/28/18 11/28/18 04:47 04:47 04:47 Hgb 11.6 L Hct 35.3 L RDW 20.4 H D-Dimer 0.57 H Creatine Kinase 220 H Discharge - Discharge Clinical Impression: Bronchospasm Chest pain Qualifiers: Chest pain type: unspecified Qualified Code(s): R07.9 - Chest pain, unspecified Condition: Stable Disposition: HOME, SELF-CARE Instructions: Bronchospasm ([facility]), Chest Pain of Unclear Cause ([facility]) Additional Instructions: As we discussed you have been seen and treated in the emergency department for your generalized left-sided chest pain. Your initial physical exam does reveal wheezing in both lungs. Please use albuterol inhaler only as needed for respiratory distress. Please take steroids as prescribed. Please follow-up at [facility] or [facility]. These are to clinics you can go to although you are uninsured. Please return to the emergency room for any further concerns. Prescriptions: Prednisone [Deltasone 20 mg Tablet] 3 tab PO DAILY 5 Days tablet Albuterol Sulfate [Proair HFA Inhalation Aerosol 8.5 gm MDI] 2 puff IH Q4H PRN #1 [id number] PRN Reason: [facility] - Follow up as needed [facility] [Provider Group] - Follow up as needed
--- NOTE | 2018-11-28 07:38 | RADIOLOGY REPORT (SQ) ---
EXAM DESCRIPTION: CT CHEST ANGIOGRAPHY WITHOUT THEN WITH IV CONTRAST COMPLETED DATE/TME: 11/28/2018 05:48 CLINICAL HISTORY: 28 years Female, sob Comparison: CR, same day. Technique: IV contrast. Coronal and sagittal reformat. 3d reconstruction. This exam was performed according to our departmental dose-optimization program, which includes automated exposure control, adjustment of the mA and/or kV according to patient size and/or use of iterative reconstruction technique.[facility]: Dose Right [facility]: CareDose [facility]: Dose Right [facility]: Teradose 4D [facility]: [employer] LIMITATIONS: None Findings: No pulmonary embolus. No right ventricular strain. Clear lungs. Inferior neck, axillae, mediastinum, airway, lymphatics, heart, vasculature, upper abdomen, and musculoskeleton appear otherwise unremarkable. Impression: No pulmonary embolus. No acute cardiopulmonary findings.
--- NOTE | 2018-11-28 09:37 | EKG REPORT ---
SEVERITY:- NORMAL ECG - SINUS RHYTHM : Confirmed by: Amos Reese MD 28-Nov-2018 09:37:25
== END 2018-11-28 09:01 | disposition home or self-care (01) ==
LOC: ER 04:32
DX: R07.9 Chest pain, unspecified (principal); J98.01 Acute bronchospasm; R06.02 Shortness of breath; F17.200 Nicotine dependence, unspecified, uncomplicated; R06.2 Wheezing; R79.89 Other specified abnormal findings of blood chemistry; I48.91 Unspecified atrial fibrillation; T44.7X6A Underdosing of beta-adrenoreceptor antagonists, initial encounter; T39.016A Underdosing of aspirin, initial encounter; Z91.128 Patient's intentional underdosing of medication regimen for other reason; Z91.14 Patient's other noncompliance with medication regimen
CPT/HCPCS: 93005; 94640; 99285; 96360; 96361; 36415; 82553; 82550; 84703; 85025; 85610; 80053; 84484; 85379; 71045; 71275; 93010; J7030; J7620

== ENCOUNTER 2019-03-27 12:22 | Emergency (ER) | payer SELFPAY ==
--- NOTE | 2019-03-27 12:59 | ER Document Report ---
ED Medical Screen (RME) - General Chief Complaint: Flank Pain Stated Complaint: FLANK PAIN/BODY ACHE/NAUSEA/VOMITING Time Seen by Provider: 03/27/19 12:54 Mode of Arrival: Ambulatory Information source: Patient Notes: 28-year-old female presents to the emergency department with multiple complaints. Reports her right side hurts. She reports chest congestion. Body aches. Reports she has not had anything to eat since Thursday because she keeps vomiting it up. She reports she called the ambulance Thursday for her right side pain but they reported that her ribs were not broken. Review of patient's chart shows she does have history of atrial fibrillation but reports she does not take anything for this. She reports she takes an aspirin a day I have greeted and performed a rapid initial assessment of this patient. A comprehensive ED assessment and evaluation of the patient, analysis of test results and completion of the medical decision making process will be conducted by additional ED providers. TRAVEL OUTSIDE OF THE [place] IN LAST 30 DAYS: No - Related Data Allergies/Adverse Reactions: No Known Allergies Allergy (Verified 03/27/19 12:55) Past Medical History - Past Medical History Cardiac Medical History: Reports: Hx Atrial Fibrillation Denies: Hx Coronary Artery Disease, Hx DVT, Hx Hypercholesterolemia, Hx Hypertension, Hx Pulmonary Embolism Pulmonary Medical History: Denies: Hx Asthma, Hx COPD Neurological Medical History: Denies: Hx Migraine, Hx Seizures Endocrine Medical History: Denies: Hx Diabetes Mellitus Type 1, Hx Diabetes Mellitus Type 2, Hx Hyperthyroidism, Hx Hypothyroidism Renal/ Medical History: Denies: Hx Peritoneal Dialysis GI Medical History: Denies: Hx Cirrhosis, Hx Hepatitis Musculoskeltal Medical History: Denies Hx Arthritis, Denies Hx Fibromyalgia, Denies Hx Gout Skin Medical History: Denies Hx Eczema, Denies Hx Psoriasis Infectious Medical History: Denies: Hx Hepatitis Past Surgical History: Reports: Hx Section - Immunizations Hx Diphtheria, Pertussis, Tetanus Vaccination: Yes
[2019-03-27 13:02] VITALS: BP 114/81
[2019-03-27] MEDS ORDERED: NORMAL SALINE 1000 ML 1,000 ML IV ONE (13:03)
[2019-03-27 13:46] LABS: ABSOLUTE EOSINOPHILS # (AUTO) 0.1 10^3/uL (0.0-0.6); ABSOLUTE LYMPHOCYTES (AUTO) 1.4 10^3/uL (0.5-4.7); ABSOLUTE MONOCYTES (AUTO) 0.5 10^3/uL (0.1-1.4); ABSOLUTE NEUT (AUTO) 4.3 10^3/uL (1.7-8.2); BASOPHILS % (AUTO) 0.7 % (0-2); EOSINOPHILS % (AUTO) 0.9 % (0-6); HEMOGLOBIN 13.3 g/dL (12.0-15.5); LYMPHOCYTES % (AUTO) 22.7 % (13-45); MEAN CORPUSCULAR HEMOGLOBIN 29.5 pg (27.0-33.4); MEAN CORPUSCULAR HGB CONC 35.1 g/dL (32.0-36.0); MEAN CORPUSCULAR VOLUME 84 fl (80-97); MONOCYTES % (AUTO) 7.6 % (3-13); PLATELET COUNT 223 10^3/uL (150-450); RED BLOOD COUNT 4.52 10^6/uL (3.72-5.28); RED CELL DISTRIBUTION WIDTH 20.4 % (11.5-14.0); SEGMENTED NEUTROPHILS % (AUTO) 68.1 % (42-78); TOTAL CELLS COUNTED % (AUTO) 100 %; WHITE BLOOD COUNT 6.3 10^3/uL (4.0-10.5)
[2019-03-27 13:50] LABS: APPEARANCE,URINE CLOUDY; BILIRUBIN,URINE NEGATIVE (NEGATIVE); GLUCOSE, URINE NEGATIVE (NEGATIVE); KETONES,URINE TRACE mg/dL (NEGATIVE); LEUKOCYTE ESTERASE,URINE LARGE (NEGATIVE); NITRITE,URINE NEGATIVE (NEGATIVE); PROTEIN,URINE 100 mg/dL (NEGATIVE); URINE SPECIFIC GRAVITY 1.021
[2019-03-27 13:51] LABS: COLOR,URINE YELLOW
[2019-03-27 13:58] LABS: A TYPE INFLUENZA AG NEGATIVE (NEGATIVE); B INFLUENZA AG NEGATIVE (NEGATIVE)
[2019-03-27 14:03] LABS: ALBUMIN 4.7 g/dL (3.5-5.0); ALKALINE PHOSPHATASE 87 U/L (38-126); ANION GAP 19 (5-19); ASPARTATE AMINO TRANSFERASE 68 U/L (14-36); BILIRUBIN,DIRECT 0.3 mg/dL (0.0-0.4); BILIRUBIN,TOTAL 0.7 mg/dL (0.2-1.3); BLOOD UREA NITROGEN 13 mg/dL (7-20); CALCIUM 9.7 mg/dL (8.4-10.2); CARBON DIOXIDE 23 mmol/L (22-30); CHLORIDE 95 mmol/L (98-107); GLUCOSE 108 mg/dL (75-110); POTASSIUM 3.3 mmol/L (3.6-5.0); TOTAL PROTEIN 8.6 g/dL (6.3-8.2)
[2019-03-27] MEDS ORDERED: CEFTRIAXONE 1 GM/D5W RTU 1 GM/50 ML RTUPB IV ONE (14:06)
--- NOTE | 2019-03-27 14:09 | ER Document Report ---
ED Flu Like - General Chief Complaint: Flu Symptoms Stated Complaint: FLANK PAIN/BODY ACHE/NAUSEA/VOMITING Time Seen by Provider: 03/27/19 12:54 Primary Care Provider: [facility] [Provider Group] - Follow up as needed Mode of Arrival: Ambulatory Notes: Patient is a 28-year-old female with a history of atrial fibrillation who presents to the emergency department with right flank pain. Patient states that her symptoms started 5 days ago. She called the ambulance at that time, but decided not to come in. She states that her symptoms have gotten progressively worse. She states that she feels like she has body aches all over. Patient is sexually active and states that she is currently on her menstrual cycle. TRAVEL OUTSIDE OF THE [place] IN LAST 30 DAYS: No - Related Data Allergies/Adverse Reactions: No Known Allergies Allergy (Verified 03/27/19 12:55) Past Medical History - General Information source: Patient - Social History Smoking Status: Current Every Day Smoker Chew tobacco use (# tins/day): No Frequency of alcohol use: Occasional Drug Abuse: None Family History: DM, Hypertension Patient has suicidal ideation: No Patient has homicidal ideation: No - Past Medical History Cardiac Medical History: Reports: Hx Atrial Fibrillation Denies: Hx Coronary Artery Disease, Hx DVT, Hx Hypercholesterolemia, Hx Hypertension, Hx Pulmonary Embolism Pulmonary Medical History: Denies: Hx Asthma, Hx COPD Neurological Medical History: Denies: Hx Migraine, Hx Seizures Endocrine Medical History: Denies: Hx Diabetes Mellitus Type 1, Hx Diabetes Mellitus Type 2, Hx Hyperthyroidism, Hx Hypothyroidism Renal/ Medical History: Denies: Hx Peritoneal Dialysis GI Medical History: Denies: Hx Cirrhosis, Hx Hepatitis Musculoskeletal Medical History: Denies Hx Arthritis, Denies Hx Fibromyalgia, Denies Hx Gout Skin Medical History: Denies Hx Eczema, Denies Hx Psoriasis Infectious Medical History: Denies: Hx Hepatitis Past Surgical History: Reports: Hx Section - Immunizations Hx Diphtheria, Pertussis, Tetanus Vaccination: Yes Review of Systems - Review of Systems Notes: REVIEW OF SYSTEMS: CONSTITUTIONAL : Denies recent illness. Denies recent unintentional weight loss. Denies fever, chills, or sweats. EENT: Denies eye, ear, throat, or mouth pain, discharge, or symptoms. Denies nasal or sinus congestion. CARDIOVASCULAR: Denies chest pain. RESPIRATORY: Denies shortness of breath, cough, congestion, difficulty breathing, or wheezing. GASTROINTESTINAL: See HPI. GENITOURINARY: See HPI. MUSCULOSKELETAL: Denies neck and back pain. Denies joint pain or swelling. SKIN: Denies rash, itchiness, or lesions HEMATOLOGIC : Denies easy bruising or bleeding. LYMPHATIC: Denies swollen, painful, enlarged glands. NEUROLOGICAL: Denies no numbness or tingling denies weakness. Denies headache. Denies altered mental status. Denies alteration in speech. PSYCHIATRIC: Denies stress, anxiety, alteration in sleep patterns, or depression. All other systems reviewed and negative. Physical Exam - Vital signs Vitals: Temp Pulse Resp BP Pulse Ox 98.3 F 128 H 16 114/81 100 03/27/19 12:57 03/27/19 12:57 03/27/19 12:57 03/27/19 12:57 03/27/19 12:57 - Notes Notes: PHYSICAL EXAMINATION: GENERAL: Appears well, healthy, well-nourished, no acute distress. HEAD: Normocephalic, atraumatic. EYES: PERRL, conjunctiva normal, all extraocular movements intact, sclera nonicteric ENT: Moist mucous membranes. NECK: Supple, no noticeable swelling, redness, rash. Normal range of motion. LUNGS: Equal breath sounds bilaterally and clear to auscultation. No wheezes rales or rhonchi. CARDIOVASCULAR: S1-S2, regular rate, regular rhythm. Radial pulses 2+, normal. ABDOMEN: Normoactive bowel sounds. Soft, nontender, no guarding, no rebound tenderness, and no masses palpated. EXTREMITIES: Normal strength and range of motion, no pitting or edema. No cyanosis. NEUROLOGICAL: Moves all extremities upon command. Strength 5/5 in all extremities. PSYCH: Normal mood, normal affect. SKIN: Warm, dry. No rash, lesions, ulcerations noted. Normal skin turgor. Course - Re-evaluation Re-evalutation: 03/27/19 15:04 Patient's hematology is unremarkable. Potassium is 3.3. This is most likely due to the patient not eating and having diarrhea. Urinalysis shows large amount of leukocytes. She does have a moderate amount of blood, but she is also on her menstrual cycle. Influenza test and mono tests are negative. 03/27/19 15:10 Pelvic exam done with ERIK Amaya at bedside. Patient did have cervical motion tenderness. 3+ bacteria seen and 1+ WBCs noted on wet mount. She will be treated with doxycycline and Flagyl. I educated the patient on not drinking alcohol while on this medication. She is in agreement with this plan. Follow- up precautions were given. Verbal discharge instructions were given to the patient. They verbalized understanding. They are stable for discharge. - Vital Signs Vital signs: Temp Pulse Resp BP Pulse Ox 98.3 F 128 H 16 114/81 100 03/27/19 12:57 03/27/19 12:57 03/27/19 12:57 03/27/19 12:57 03/27/19 12:57 - Laboratory Result Diagrams: 03/27/19 13:24 03/27/19 13:24 Laboratory results interpreted by me: 03/27/19 03/27/19 03/27/19 13:24 13:24 13:24 RDW 20.4 H Potassium 3.3 L Chloride 95 L AST 68 H Total Protein 8.6 H Urine Protein 100 H Urine Ketones TRACE H Urine Blood MODERATE H Urine Urobilinogen 2.0 H Ur Leukocyte Esterase LARGE H Discharge - Discharge Clinical Impression: PID (pelvic inflammatory disease) Urinary tract infection Qualifiers: Urinary tract infection type: acute pyelonephritis Qualified Code(s): N10 - Acute pyelonephritis Condition: Stable Disposition: HOME, SELF-CARE Instructions: Urinary Tract Infection ([facility]) Additional Instructions: Your urine shows findings consistent with a urinary tract infection. Please take all the antibiotics as directed even if your symptoms have improved. Please follow-up with your primary care physician as needed. Return to emergency room if you develop fever >101F, persistent vomiting, become lethargic, have severe pain in your sides, or any other symptoms that are concerning to you. Your are being treated for pelvic inflammatory disease. You are being started on 2 different antibiotics and you need to take these until you finish them. Please return if you have worsening pain, persistent vomiting, spike a fever greater than 101F, or have any other symptoms that are concerning to you. Please follow closely with you primary care physician or your [employer] at your earliest ability. Prescriptions: Doxycycline Hyclate 100 mg PO BID 14 Days #28 capsule Metronidazole [Flagyl 500 mg Tablet] 500 mg PO Q6H 7 Days #28 tablet Referrals: [facility] [Provider Group] - Follow up as needed
[2019-03-27] MEDS ORDERED: ONDANSETRON HCL INJ/PF 4 MG/2 ML SDV IV ONE (14:36)
--- NOTE | 2019-03-27 14:37 | RADIOLOGY REPORT (SQ) ---
EXAM DESCRIPTION: CHEST 2 VIEWS COMPLETED DATE/TIME: 03/27/2019 2:18 pm REASON FOR STUDY: cough congestion COMPARISON: 11/28/2018 TECHNIQUE: Frontal and lateral radiographic views of the chest acquired. NUMBER OF VIEWS: Two view. LIMITATIONS: None. FINDINGS: LUNGS AND PLEURA: No pneumothorax. No consolidation or pleural effusion. MEDIASTINUM AND HILAR STRUCTURES: Stable. HEART AND VASCULAR STRUCTURES: Stable. BONES: No acute findings. HARDWARE: None in the chest. OTHER: No other significant finding. IMPRESSION: NO ACUTE FINDINGS. TECHNICAL DOCUMENTATION: JOB ID: [id number] [id number] [employer]- All Rights Reserved Reading location - IP/workstation name: Wish
[2019-03-27 15:19] LABS: BACTERIA (WET MOUNT) 3+ BACTERIA SEEN; RBCS (WET MOUNT) 4+ RBCS SEEN; T.VAGINALIS (WET MOUNT) NO TRICHOMONAS SEEN; WBCS (WET MOUNT) 1+ WBCS SEEN; YEAST (WET MOUNT) NO YEAST SEEN
[2019-03-27] MEDS ORDERED: AZITHROMYCIN 250 MG TABLET PO ONE (15:52)
[2019-03-27] MEDS ORDERED: ONDANSETRON ODT 4 MG TAB (6 TAB/ER DISP) PO PRN (15:52)
[2019-03-27 16:49] LABS: CHLAM PCR NOT DETECTED (NOT DETECT)
--- NOTE | 2019-03-27 19:29 | EKG REPORT ---
SEVERITY:- ABNORMAL ECG - SINUS TACHYCARDIA BORDERLINE T ABNORMALITIES, ANTERIOR LEADS PROLONGED QT INTERVAL : Confirmed by: Breanne Perkins MD 27-Mar-2019 19:28:32
== END 2019-03-27 16:31 | disposition home or self-care (01) ==
LOC: ER 12:22
DX: N73.9 Female pelvic inflammatory disease, unspecified (principal); N10 Acute pyelonephritis; R10.9 Unspecified abdominal pain; R11.2 Nausea with vomiting, unspecified; M79.10 Myalgia, unspecified site; F17.200 Nicotine dependence, unspecified, uncomplicated; I48.91 Unspecified atrial fibrillation
CPT/HCPCS: 93005; 99284; 96361; 96375; 96365; 36415; 87086; 87210; 83690; 85025; 81025; 87088; 86308; 80053; 81001; 87186; 87491; 87591; 87804; 71046; 93010; J2405; J7030; J0696